=== PATIENT | female | born 1995 | race Caucasian/White ===

== ENCOUNTER 2017-02-16 16:20 | Emergency (ER) | payer OTHER ==
[2017-02-16 17:23] VITALS: BP 122/80
--- NOTE | 2017-02-16 17:40 | UC ---
Respiratory Complaint HPI - HPI Summary HPI Summary: 21 y/o female presents to the urgent care c/o sore throat, sinus congestion with TSANG and chest congestion w/ dry cough for the past 3 days. symptoms started with nasal congestion and TSANG. Now she is producing a green nasal discharge. She feels mild SOB when she coughs. She took Mucinex Max last night which has help. TSANG is 6/10 with sinus tenderness. Mild fever the first day. Pt denies N/V/D, dizziness, ear pain, chest pain. - History of Current Complaint Chief Complaint: UCRespiratory Stated Complaint: CHEST CONGESTION Time Seen by Provider: 02/16/17 17:37 Hx Obtained From: Patient Hx Last Menstrual Period: 02/01/17 ?: No Onset/Duration: Gradual Onset, Lasting Days - 3, Still Present Timing: Constant Severity Initially: Mild Severity Currently: Moderate Pain Intensity: 6 - headache Pain Scale Used: 0-10 Numeric Character: Cough: Nonproductive Aggravating Factors: Nothing Alleviating Factors: OTC Meds Associated Signs And Symptoms: Positive: Dyspnea, Fever - first day, Nasal Congestion, Sinus Discomfort. Negative: Pleuritic Chest Pain, Wheezing, Dizziness - Risk Factors Pulmonary Embolism Risk Factors: Negative Cardiac Risk Factors: Negative Pseudomonas Risk Factors: Negative Tuberculosis Risk Factors: Negative - Allergies/Home Medications Allergies/Adverse Reactions: Allergies Allergy/AdvReac Type Severity Reaction Status Date / Time No Known Allergies Allergy Verified 02/16/17 17:17 Home Medications: Home Medications Dextromethorphan-Phenylephrine [Day Time Multi-Symptom Co 10-5-325 mg] 1 cap PO PRN 02/16/17 [History] guaiFENesin ER TAB [Mucinex*] 600 mg PO BID PRN 02/16/17 [History Confirmed 11/27] PMH/Surg Hx/FS Hx/Imm Hx Previously Healthy: Yes Respiratory History: Asthma - exercise induce asthma - Surgical History Surgical History: None - Family History Known Family History: Positive: None, Cardiac Disease, Hypertension, Diabetes - Social History Occupation: Employed Part-time, Student Lives: With Family Alcohol Use: Occasionally Substance Use Type: None Smoking Status (MU): Never Smoked Tobacco - Immunization History Most Recent Influenza Vaccination: 02/15/15 Vaccination Up to Date: Yes Review of Systems Constitutional: Negative Skin: Negative Eyes: Negative ENT: Sore Throat, Nasal Discharge, Sinus Congestion, Sinus Pain/Tenderness Respiratory: Shortness Of Breath - when coughing, Cough - dry Cardiovascular: Negative Gastrointestinal: Negative Genitourinary: Negative Motor: Negative Neurovascular: Negative Musculoskeletal: Negative Neurological: Negative Psychological: Negative All Other Systems Reviewed And Are Negative: Yes Physical Exam Triage Information Reviewed: Yes Appearance: Well-Appearing, No Pain Distress, Well-Nourished, Thin Vital Signs: Initial Vital Signs Temp 98.4 F 02/16/17 17:19 Pulse 77 02/16/17 17:19 Resp 18 02/16/17 17:19 BP 122/80 02/16/17 17:19 Pulse Ox 100 02/16/17 17:19 Vital Signs Reviewed: Yes Eye Exam: Normal Eyes: Positive: Conjunctiva Clear ENT: Positive: Normal ENT inspection, Hearing grossly normal, Pharyngeal erythema, Nasal congestion - edematous and erythematous nasal mucosa,, Nasal drainage - yellowish nasal discharge., TMs normal, Tonsillar swelling, Other: - B/L frontal and maxillary sinus tenderness on percussion. Negative: Tonsillar exudate Dental Exam: Normal Neck exam: Normal Neck: Positive: Supple, Nontender, No Lymphadenopathy Respiratory Exam: Normal Respiratory: Positive: Chest non-tender, Lungs clear, Normal breath sounds Cardiovascular Exam: Normal Cardiovascular: Positive: RRR, No Murmur, Pulses Normal Abdominal Exam: Normal Abdomen Description: Positive: Nontender, No Organomegaly, Soft. Negative: CVA Tenderness (R), CVA Tenderness (L) Bowel Sounds: Positive: Present Musculoskeletal Exam: Normal Musculoskeletal: Positive: Strength Intact, ROM Intact, No Edema Neurological Exam: Normal Psychological Exam: Normal Skin Exam: Normal UC Diagnostic Evaluation - Laboratory O2 Sat by Pulse Oximetry: 100 Respiratory Course/Dx - Course Course Of Treatment: 21 y/o female presents to the urgent care c/o sore throat , sinus congestion with TSANG and chest congestion w/ dry cough for the past 3 days. symptoms started with nasal congestion and TSANG. Now she is producing a green nasal discharge. She feels mild SOB when she coughs. She took Mucinex Max last night which has help. TSANG is 6/10 with sinus tenderness. Mild fever the first day. Pt denies N/V/D, dizziness, ear pain, chest pain.Hx obtained.Rapid strep:negative. Pt with acute sinusitis. Meds Rx to pharmacy. Pt given D/C instructions. Pt understood and agreed and left clinic ambulating. - Differential Dx/Diagnosis Differential Diagnosis/HQI/PQRI: Asthma, Bronchitis, Influenza, Laryngitis, MRSA , Sinusitis Provider Diagnoses: 1- Acute sinusitis Discharge - Discharge Plan Condition: Stable Disposition: HOME Prescriptions: Albuterol HFA INHALER* [Ventolin HFA Inhaler*] 1 - 2 puff INH Q4H PRN #1 mdi PRN Reason: Cough Fluticasone NASAL SPRAY 50MCG* [Flonase NASAL SPRAY 50MCG*] 2 spray BOTH NARES DAILY #1 btl Patient Education Materials: Sinusitis (ED) Referrals: Weston Harper MD [Primary Care Provider] - Additional Instructions: 1-Please continue taking the Mucionex PO to alleviate cough and congestion.. 2-Use the albuterol inhaler to alleviate symptoms of Cough and SOB. Increase fluid intake, rest, eat well. 3-Use the nasal spray as directed and buy OTC saline drops to clear your sinuses. 4- If symptoms do not improve or worsen or your develop SOB with fever and severe wheezing please go immediately to the ER further evaluation and treatment.
== END 2017-02-16 18:17 | disposition home or self-care (01) ==
LOC: UCCORT 16:20
DX: J01.90 Acute sinusitis, unspecified (principal); J45.990 Exercise induced bronchospasm
CPT/HCPCS: 87651; 99212; G0463

== ENCOUNTER 2018-04-24 12:16 | Emergency (ER) | payer OTHER ==
[2018-04-24 13:03] VITALS: BP 117/75
--- NOTE | 2018-04-24 13:12 | UC ---
UC General HPI - HPI Summary HPI Summary: 22 yo female patient with PMH of exercise induced asthma who for the past 4 days c/o L sided lymph node swelling, difficult to move her head to the side. L ear intermittent pain. Has used lozenges for the pain since it is painful to swallow. She has been feeling fatigued but denies chills or fever. - History of Current Complaint Chief Complaint: UCGeneralIllness Stated Complaint: SORE THROAT Time Seen by Provider: 04/24/18 12:46 Hx Obtained From: Patient Hx Last Menstrual Period: 04/13/18 Onset/Duration: Sudden Onset, Lasting Days Onset Severity: Mild Current Severity: Moderate Pain Intensity: 6 - Allergy/Home Medications Allergies/Adverse Reactions: Allergies Allergy/AdvReac Type Severity Reaction Status Date / Time No Known Allergies Allergy Verified 04/24/18 13:03 PMH/Surg Hx/FS Hx/Imm Hx Previously Healthy: Yes Respiratory History: Asthma - Surgical History Surgical History: None - Family History Known Family History: Positive: None, Cardiac Disease, Hypertension, Diabetes - Social History Alcohol Use: Occasionally Substance Use Type: None Smoking Status (MU): Never Smoked Tobacco - Immunization History Most Recent Influenza Vaccination: 02/15/15 Vaccination Up to Date: Yes Review of Systems All Other Systems Reviewed And Are Negative: Yes ENT: Positive: Sore Throat, Ear Ache Physical Exam Triage Information Reviewed: Yes Appearance: Well-Appearing, No Pain Distress, Well-Nourished Vital Signs: Initial Vital Signs Temp 98.4 F 04/24/18 12:57 Pulse 75 04/24/18 12:57 Resp 16 04/24/18 12:57 BP 117/75 04/24/18 12:57 Pulse Ox 100 04/24/18 12:57 Vital Signs Reviewed: Yes Eyes: Positive: Conjunctiva Clear ENT: Positive: Hearing grossly normal, Pharynx normal, TMs normal, Uvula midline Neck: Positive: Supple, Nontender, Tenderness @ - right submandibular angle, along right SCM Respiratory: Positive: Chest non-tender, Lungs clear, Normal breath sounds, No respiratory distress Cardiovascular: Positive: RRR, No Murmur, Pulses Normal, Brisk Capillary Refill Abdomen Description: Positive: Nontender, No Organomegaly Bowel Sounds: Positive: Present Musculoskeletal: Positive: Strength Intact Neurological Exam: Normal Psychological Exam: Normal Skin Exam: Normal Course/Dx - Course Course Of Treatment: 22 yo patient with dysphagia of 4 days onset and tenderness on right neck , rapid strep was negative, monospot test results pending. f/u results. Symptomatic treatment with ibuprofen given, supportive measures - Differential Dx - Multi-Symptom Provider Diagnoses: dysphagia Discharge - Sign-Out/Discharge Documenting (check all that apply): Patient Departure All imaging exams completed and their final reports reviewed: No Studies - Discharge Plan Condition: Stable Disposition: HOME Patient Education Materials: Dysphagia (ED), Ibuprofen (By mouth) Referrals: Weston Harper MD [Primary Care Provider] - - Billing Disposition and Condition Condition: STABLE Disposition: Home
== END 2018-04-24 13:51 | disposition home or self-care (01) ==
LOC: UCCORT 12:16
DX: R13.10 Dysphagia, unspecified (principal)
CPT/HCPCS: 36415; 86308; 87651; 99212; G0463